=== PATIENT | male | born 1965 | race African-American/Black ===

== ENCOUNTER 2018-04-13 15:28 | Emergency (ER) | payer MEDICAID ==
--- NOTE | 2018-04-13 16:00 | EDPHY ---
HPI/HX/ROS/PE/MDM Narrative: CHIEF COMPLAINT: Cough, rash, toe pain HISTORY OF PRESENT ILLNESS: This patient is a 52 y/o male who presents with multiple complaints. Yesterday, he developed a productive cough with yellow sputum. There is some pain associated with this. He does not feel generally ill and denies sore throat, rhinorrhea, other cold symptoms, or shortness of breath. He denies any chest pain. Denies any chest tightness or symptoms similar to asthma. Around the same time, he developed a pruritic rash on his shoulders. This is now extending down his back. Other people where he has been staying have a similar rash. Additionally, the patient complains of pain to his left pinky toe. He was unable to wear a shoe today due to his discomfort. He has noted recent increased swelling in his left leg, and endorses history of bilateral DVTs. Two days ago, he ran out of his anticoagulant, Xarelto, as he is currently looking for a new primary care provider. No fever, chills, chest pain, shortness of breath, palpitations, vomiting, diarrhea, urinary complaints, headache, lightheadedness. REVIEW OF SYSTEMS: Aside from elements discussed in the HPI, a comprehensive 10-point review of systems was reviewed and is negative. PAST MEDICAL HISTORY: Childhood asthma. Bilateral DVTs. SOCIAL HISTORY: Current daily tobacco use. Lives in [place]. Single. VITAL SIGNS: Reviewed by me. Normal sats. GENERAL: Well-developed, well-nourished, resting comfortably in no respiratory distress. HEENT: Atraumatic. Eyes: No icterus, no injection. Mouth: moist mucous membranes. No erythema or lesions. Neck: supple with no adenopathy. LUNGS: Clear to auscultation bilaterally, no wheezes, rhonchi or rales. CARDIAC: Regular tachycardia. No rubs, murmurs or gallops. ABDOMEN: Soft, nontender, nondistended, bowel sounds normal. BACK: No CVA tenderness. EXTREMITIES: No trauma. Swelling to bilateral lower extremities, no edema. Calf compartments soft. Tenderness along lateral aspect of left small toe. Range of motion is normal throughout. NEURO: Alert and oriented, grossly nonfocal. SKIN: Maculopapular rash over top of left shoulder, lower left back and buttock , bridge of nose, and bilateral cheeks. Warm and dry. PSYCHIATRIC: Normal mentation, no agitation. Portions of this note were transcribed by a medical service representative. I personally performed a history, physical exam, medical decision making, and confirmed accuracy of information the transcribed note. ED Course: This patient is a 52 y/o male presenting with two day history of cough and rash as well as left pinky toe pain. He additionally requests a refill of his Xarelto while he establishes care with a local primary care provider. Exam reveals maculopapular rash over his left shoulder, left lower back and buttock suspicious for folliculitis. Small linear distribution of rash at his lower back suspicious for scabies, but the other areas are not consistent with this, and the patient has a small area of similar rash over his nasal bridge and cheeks. Plan for x-ray chest and left foot. Plan to consult with case management regarding establishment of primary care for this patient. 16:41 Reviewed chest x-ray. Evidence of bronchitis. Reviewed left foot x-ray. No evidence of fracture or other acute processes. 16:45 Reassessed patient. Plan to discharge home in good condition with prescription for Xarelto and for Keflex to treat his possible folliculitis. Albuterol inhaler provided as well. We discussed treatment for scabies should his rash not resolve with antibiotics within one week. Follow up and return precautions discussed. He is comfortable with this plan. 16:48 Spoke with case management. They have provided some resources for primary care providers for this patient and he understands he needs to follow up for management of his medication regimen. I received a call from [facility] after this patient was discharged. His insurance does not cover Xarelto. Patient has use Lovenox in the past. He was placed on Lovenox 100 mg twice daily to treat DVTs. He was given referral to the [facility]. MDM: Differential diagnoses for the patient's symptom complex was considered including but not limited to folliculitis, scabies, toe fracture, bunion, bronchitis, pneumonia, reactive airways disease. Patient does have a history of DVTs per his report and has been off of his Xarelto for 2 days. They do not believe he has a pulmonary embolism. He has no hypoxia, no shortness of breath, no chest pain. He report only a cough with sputum production. We will restart his anticoagulants. - Data Points Imaging Results: Imaging Impressions Chest X-Ray 04/13/18 16:06 Impression: Normal. No source for chest pain identified. 2. Left Fifth Toe, Three Views History: Pain and rash Findings: No fracture or malalignment is identified. Mineralization is normal. No arthritis is identified. 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 Impression: Normal. Nothing acute identified. Toe X-Ray 04/13/18 16:06 Impression: Normal. No source for chest pain identified. 2. Left Fifth Toe, Three Views History: Pain and rash Findings: No fracture or malalignment is identified. Mineralization is normal. No arthritis is identified. 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 Impression: Normal. Nothing acute identified. Imaging: I viewed and interpreted images myself General Time Seen by Provider: 04/13/18 15:45 Initial Vital Signs: Initial Vital Signs Temperature (C) 36.9 C 04/13/18 15:35 Heart Rate 109 H 04/13/18 15:35 Respiratory Rate 16 04/13/18 15:35 Blood Pressure 111/82 H 04/13/18 15:35 O2 Sat (%) 96 04/13/18 15:35 O2 Delivery Mode Room Air Allergies/Adverse Reactions: No Known Allergies Allergy (Unverified 04/13/18 15:34) Home Medications: Medication Instructions Recorded Albuterol [Proventil Inhaler] 1 - 2 puffs IH Q4H #1 mdi 04/13/18 Cephalexin [Keflex (RX)] 500 mg PO QID 7 Days cap 04/13/18 Rivaroxaban [Xarelto] 20 mg PO DAILY #30 tab 04/13/18 Xarelto 04/13/18 Departure - Departure Disposition: Home, Routine, Self-Care Clinical Impression: Rash, Bronchitis Toe pain Qualifiers: Laterality: left Qualified Code(s): M79.675 - Pain in left toe(s) Condition: Good Instructions: Cephalexin (By mouth), Rivaroxaban (By mouth), Scabies (ED), Acute Bronchitis (ED), Acute Rash (ED) Additional Instructions: Take Keflex as prescribed. It is important to finish your entire course of antibiotics even if you are feeling better. For your cough and colored sputum, you been prescribed an albuterol meter dose inhaler. Please use this as directed. Take Xarelto as prescribed. Follow up with a primary care provider to establish care and manage your medication regimen. If your rash does not resolve with antibiotics within one week, obtain an over- the-counter treatment for scabies and use as directed. You will also need to wash all your clothes and bedding. Return to the emergency department for fever, chest pain, difficulty breathing, or other worsening of condition. Referrals: Germain Jacobson [place] [place] - As per Instructions [facility],. [Clinic] - As per Instructions (follow up to establish care and obtain your xarelto) Prescriptions: Albuterol [Proventil Inhaler] 1 - 2 puffs IH Q4H #1 mdi Cephalexin [Keflex (RX)] 500 mg PO QID 7 Days cap Rivaroxaban [Xarelto] 20 mg PO DAILY #30 tab Report Scribed for: Emi Curiel Report Scribed by: Zaira Babb Date of Report: 04/13/18 Time of Report: 16:00
[2018-04-13 17:08] VITALS: BP 110/75
--- NOTE | 2018-04-13 17:12 | ASMTCMCOM ---
CM Note CM Note Notes: Pt presented to the ED for left lower leg rash and swelling; pt has a history of DVTs and ran out of his Xarelto two days ago. Pt also reports having a cough and toe pain. Pt new to the [facility], recently moved here from [place] and prior to that was living in [place]. Pt provided pamphlet on [facility] and also [facility]. Offered information on [facility] as well but patient wants to start out with the pamphlets he's been given. Pt very pleasant and appreciative for resources. Pt states he is current with the [employer] Ready to Work program and living at their housing. CM available for further assistance if needed. Date Signed: 04/13/2018 05:11 PM Electronically Signed By:Sofia Messina RN
--- NOTE | 2018-04-13 17:14 | ASDISCHSUM ---
Discharge Information Plan Status:Home with No Needs Medically Cleared to Leave: Discharge Date:04/13/2018 05:08 PM CM D/C Disposition:Home, Routine, Self-Care ADT D/C Disposition:Home, Routine, Self-Care Projected Discharge Date:04/13/2018 05:08 PM Transportation at D/C:None or Unknown Discharge Delay Reason: Follow-Up Date:04/13/2018 05:08 PM Discharge Slot: Final Diagnosis: Placement Information Patient Contact Information Contact Name:SALOME Relationship: Address: Home Phone: Work Phone: City: Alternate Phone: State/[place] Code: Email: Financial Information Financial Class:Medicaid Primary Plan Desc:MEDICA[employer] HEALTH [employer] Primary Plan Number:[id number] Secondary Plan Desc: Secondary Plan Number: Assessment Information [facility] CM Progress Note CM Note CM Note Notes: Pt presented to the ED for left lower leg rash and swelling; pt has a history of DVTs and ran out of his Xarelto two days ago. Pt also reports having a cough and toe pain. Pt new to the [facility], recently moved here from [place] and prior to that was living in [place]. Pt provided pamphlet on [facility] and also [facility]. Offered information on [facility] as well but patient wants to start out with the pamphlets he's been given. Pt very pleasant and appreciative for resources. Pt states he is current with the [employer] Ready to Work program and living at their housing. CM available for further assistance if needed. Date Signed: 04/13/2018 05:11 PM Electronically Signed By:Sofia Messina RN Intervention Information Intervention Type:Health Clinic Date of Service:04/13/2018 05:13 PM Patient Type:Emergency Room Staff Member:JESSICA Messina [place] Hours:0.25 Discipline:Business Account Leader Severity: Comment: Intervention Type:Community Resources Date of Service:04/13/2018 05:13 PM Patient Type:Emergency Room Staff Member:JESSICA Messina [place] Hours:0.25 Discipline:Business Account Leader Severity: Comment:
== END 2018-04-13 17:08 | disposition home or self-care (01) ==
DX: J40 Bronchitis, not specified as acute or chronic (principal); R21 Rash and other nonspecific skin eruption; M79.675 Pain in left toe(s)

== ENCOUNTER → 2018-04-30 | Outpatient (CLI) | payer MEDICAID | LOC: FIMAGING 16:15 | PROVIDERS: ATTEND Physician Assistant | DX: I82.5Z3 Chronic embolism and thrombosis of unspecified deep veins of distal lower extremity, bilateral (principal); M79.605 Pain in left leg; M79.604 Pain in right leg ==

== ENCOUNTER 2019-01-06 08:35 | Emergency (ER) | payer MEDICAID ==
--- NOTE | 2019-01-06 09:24 | EDPHY ---
General Time Seen by Provider: 01/06/19 09:02 Narrative: CLINICAL IMPRESSION: Left leg swelling ASSESSMENT/PLAN: Very pleasant 53-year-old male with a history of DVT bilaterally, compliant with Xarelto, presents to the emergency department by request of his employer for evaluation of left leg swelling. Patient stands all day for his job and notes that his legs become slightly more swollen during the day. He does report his left leg is always more swollen than his right. He has not missed his anticoagulation therapy. Repeat ultrasound today shows chronic appearing nonocclusive thrombus in the calf and thigh with no evidence of acute thrombus. Patient has intact distal neurovascular exam. He has no complaints of chest pain or shortness of breath. Vital signs stable. No tachycardia or hypoxia. Patient was advised to try compression stockings, follow up with primary care, warning signs return to ED sooner alignment discharge. DIFFERENTIAL DX: Differential includes but not limited to acute on chronic DVT, lymphangitis, venous stasis, cellulitis ED PROCEDURES: See lab and/or imaging results below ED COURSE: Plan for ultrasound of the left leg 10:15 a.m.: Ultrasound results discussed with Dr. Cool. compressive non -occlusive thrombus in calf and thigh on left, appears chronic. no obvious acute or fully occlusive clot. benign lymph node in right inguinal area. CHIEF COMPLAINT: Left leg swelling HPI: 53-year-old very pleasant male presents to the emergency department with 2 days of mild increased swelling to the left leg. Patient reports a history of bilateral DVTs, more so to the left leg. He has been on either warfarin, Coumadin or Xarelto since 2008. He believes he is currently taking Xarelto. He works in a kitchen and stands all day and his employer yesterday noted increased swelling to the left leg and wanted him evaluated today and to receive a work note to return to work. Patient admits that the leg swells if he stands all day. He denies chest pain and shortness of breath. No history of PE. He is taking his medication compliantly. PAST MEDICAL HISTORY: History of bilateral DVT, depression See nurse/triage notes for additional history if applicable Pertinent Past Surgical History: None reported Family History: Noncontributory Social History: Otherwise healthy nonsmoker, works in a kitchen, REVIEW OF SYSTEMS: All other systems negative Constitutional: No fever, no chills, appetite change. Cardiovascular: No chest pain, no palpitations. Respiratory: No cough, no shortness of breath. Musculoskeletal: No back pain, positive for joint swelling, joint pain, myalgias. Skin: No rashes, positive for left leg color change. Neurological: No headache, dizziness, weakness. PHYSICAL EXAM: General Appearance: Alert, oriented, appropriate, cooperative, overweight, NAD , well hydrated, non-toxic appearing, VSS, no tachycardia, no hypoxia. Respiratory: There are no retractions, lungs are clear to auscultation. Cardiac: Regular rate and rhythm, no murmurs or gallops. Neurological: [ Alert and oriented x 3 Skin: Warm, dry, no rashes, no nodules on palpation. Musculoskeletal: Extremities are symmetrical, full range of motion, no tenderness to palpation of the left calf, mild swelling noted compared to right leg, no erythema or warmth, distal neurovascular exam intact Psychiatric: Patient is oriented X 3, there is no agitation. MEDICAL DECISION MAKING: Patient was seen independently. Secondary supervising physician at time of evaluation was Dr. Villanueva. Diagnosis: Left leg swelling with history of DVT. New, requires workup Summary: See Assessment and Plan for summary of ED visit Independent visualization of images, tracing, or specimens: Yes. Decision to obtain medical records or history from someone other than the patient: No Review / Summarize previous medical records: Yes Discussed patient with another provider: Radiology Patient Progress: Improved. - Diagnostics Imaging Results: Imaging Impressions Extremity Venous Study 01/06/19 09:16 Impression: Findings consistent with chronic nonocclusive thrombus. No source for increased leg swelling identified. Results called to Claudio Frye at 10:17 AM. - History Smoking Status: Light smoker - Objective Vital Signs: Initial Vital Signs Temperature (C) 36.8 C 01/06/19 08:49 Heart Rate 80 01/06/19 08:49 Respiratory Rate 16 01/06/19 08:49 Blood Pressure 128/76 H 01/06/19 08:49 O2 Sat (%) 98 01/06/19 08:49 O2 Delivery Mode Room Air Allergies/Adverse Reactions: No Known Allergies Allergy (Verified 01/06/19 08:48) Home Medications: Medication Instructions Recorded Albuterol [Proventil Inhaler] 1 - 2 puffs IH Q4H #1 mdi 04/13/18 Cephalexin [Keflex (RX)] 500 mg PO QID 7 Days cap 04/13/18 Rivaroxaban [Xarelto] 20 mg PO DAILY #30 tab 04/13/18 Xarelto 04/13/18 Departure - Departure Disposition: Home, Routine, Self-Care Clinical Impression: Left leg swelling Condition: Good Instructions: Leg Edema (ED) Additional Instructions: DISCHARGE INSTRUCTIONS FROM YOUR DOCTOR Thank you for visiting our emergency department today. You were treated by a physician occupational therapist assistant today and your case was reviewed with our ED Attending physician. Please keep in mind that discharge from the emergency department does not mean that there is nothing wrong - it simply means that we have not identified an emergency condition that requires further evaluation or treatment in the hospital. You should always plan to follow up with primary care for re- evaluation of your condition in the next 2-3 days. If you have been referred to a specialist, please call as soon as possible (today or tomorrow) to schedule your follow up appointment at the appropriate time. ULTRASOUND OF THE LEFT LEG TODAY SHOWED REMNANTS OF A NONOCCLUSIVE CLOT IN THE CALF AND THIGH THAT APPEARS CHRONIC. YOU DO NOT APPEAR TO HAVE AN ACUTE OR WORSENING BLOOD CLOT. WE RECOMMEND CONSIDERING COMPRESSION STOCKINGS IF YOU'RE GOING TO STAND ALL DAY, ELEVATE YOUR LEGS AT THE END OF THE DAY, CONTINUE TAKING THE BLOOD THINNING MEDICATION YOUR CURRENTLY PRESCRIBED. FOLLOW UP WITH A PRIMARY CARE DOCTOR. A WORK NOTE WAS PROVIDED ALLOWING YOU TO RETURN TO WORK. PLEASE RETURN TO THE EMERGENCY DEPARTMENT FOR INCREASED LEG PAIN, SWELLING, FEVER, CHILLS, CHEST PAIN OR SHORTNESS OF BREATH, OR ANY OTHER CONCERN. People present with illnesses and injuries in different ways, and it is always possible that we have missed something. You may always return for re-evaluation if symptoms worsen or if they are not improving or if you develop new/different symptoms. Again, thank you for choosing our emergency department. We hope that you feel better. Referrals: NONE *PRIMARY CARE P,. [Primary Care Provider] - As per Instructions Andre Grigsby MD [Medical Doctor] - 1-2 days without fail Stand Alone Forms: Work Excuse
[2019-01-06 10:29] VITALS: BP 133/80
== END 2019-01-06 10:28 | disposition home or self-care (01) ==
DX: M79.89 Other specified soft tissue disorders (principal); I82.502 Chronic embolism and thrombosis of unspecified deep veins of left lower extremity; Z79.01 Long term (current) use of anticoagulants